=== PATIENT | male | born 1995 | race Caucasian/White ===

== ENCOUNTER 2016-11-26 15:56 | Emergency (ER) | payer OTHER ==
[2016-11-26 16:11] VITALS: TEMP 98.1; O2SAT 96
--- NOTE | 2016-11-26 16:54 | EDPHY ---
H & P Stated Complaint: nontraumatic l knee swelling/pain x 2 weeks Source: Patient Exam Limitations: No limitations - Personal History Current Tetanus/Diphtheria Vaccine: Yes - Medical/Surgical History Hx Asthma: No Hx Chronic Respiratory Disease: No Hx Diabetes: No Hx Cardiac Disease: No Hx Renal Disease: No Hx Cirrhosis: No Hx Alcoholism: No Hx HIV/AIDS: No Hx Splenectomy or Spleen Trauma: No Other PMH: appy - Social History Smoking Status: Current some day smoker Time Seen by Provider: 11/26/16 16:53 HPI/ROS: HPI: This is a 21-year-old male who presents with Chief Complaint: nontraumatic left knee swelling/pain x 2 weeks Location: Left knee Quality: Swelling and pain Duration: 2 weeks Signs and Symptoms: No bleeding, no radiation, no numbness, no weakness, no tingling, no incontinence, no decreased range of motion Timing: Gradually worsening Severity: 6/10 Context: Patient complains of left knee swelling that has gradually worsened over the last 2 weeks with pain increasing today to be 6/10; nonradiating. Patient denies any trauma/injury. Does play soccer intermittently. Has a history of right MCL injury that was treated conservatively in the past. Pain is increased with flexion, relieved with extension. Is ambulatory but with mild -to-moderate pain. Venita fever/redness/warmth/paresthesias. Modifying Factors: Has not tried any [id number] pain medications to relieve the symptoms Comment: ROS: Constitutional: No fever, no chills, no weight loss Eyes: No blurred vision Respiratory: No shortness of breath, no cough Cardiovascular: No chest pain Gastrointestinal: No nausea, no vomiting no diarrhea Genitourinary: No dysuria Extremities: No myalgias Neurologic: No weakness, no numbness Skin: No rashes Hematologic: No bruising, no bleeding MEDICAL/SURGICAL/SOCIAL HISTORY: Medical history: Generally healthy Surgical history: Appendectomy Social history: College student. CONSTITUTIONAL: Well-developed well-nourished well-appearing young adult male, awake and alert, no obvious distress HEENT: Atraumatic and normocephalic, PERRL, EOMI. Tympanic membranes clear. Oropharynx clear, no exudate and moist pink mucosa. Airway patent. No lymphadenopathy. No meningismus. Cardiovascular: Normal S1/S2, regular rate, regular rhythm, without murmur rub or gallop. PULMONARY/CHEST: Symmetrical and nontender. Clear to auscultation bilaterally. Good air movement. No accessory muscle usage. ABDOMEN: Soft, nondistended, nontender, no rebound, no guarding, no peritoneal signs, no masses or organomegaly. No CVAT. EXTREMITIES: 2/2 pedal pulses, left knee shows mild effusion; no joint line tenderness; full extension, flexion to 120. Mild pain with anterior drawer test. No pain with posterior drawer test. mild pain with valgus stress. No pain with varus stress. Patella has normal mobility. Extensor mechanism intact. no deformities, no clubbing, no cyanosis or edema. No calf tenderness. No palpable cords. Negative Homans sign. NEUROLOGICAL: no focal neuro deficits. GCS 15. Light touch sensation intact. SKIN: Warm and dry, no erythema. no rash. Good capillary refill. (Nicki Stinson) Constitutional: Initial Vital Signs Temperature (C) 36.7 C 11/26/16 16:08 Heart Rate 82 11/26/16 16:08 Respiratory Rate 16 11/26/16 16:08 Blood Pressure 114/62 11/26/16 16:08 O2 Sat (%) 96 11/26/16 16:08 O2 Delivery Mode Room Air Allergies/Adverse Reactions: No Known Allergies Allergy (Verified 11/26/16 16:07) Home Medications: Medication Instructions Recorded Naproxen Sodium [Naproxen Sodium 500 mg PO DAILY PRN #12 tablet.sa 11/26/16 ER] Medical Decision Making - Diagnostics Imaging Results: Imaging Impressions Knee X-Ray 11/26/16 17:03 Impression: Small left knee joint effusion, otherwise negative left knee radiographs. ED Course/Re-evaluation: Left knee x-ray, oral medication ordered Suspect MCL sprain Given naproxen and Ultram with adequate relief of pain Small effusion noted; not enough to remove Placed in knee immobilizer, crutches, partial weight-bearing and advance as tolerated. Advised rice therapy, Ortho follow-up if symptoms persist or worsen over the next 1-2 weeks; may require an MRI of his knee outpatient to evaluate for meniscus and ligament derangement. X-rays reviewed via PACs and show mild effusion; no significant degenerative changes/loose bodies. No signs of neurovascular compromise/tenting of skin/compartment syndrome/ extremities and joints examined above and below area of concern and are neurovascularly intact/septic arthritis/cellulitis/DVT. (Nicki Stinson) The patient was evaluated and managed by the physician investment sales assistant. I have reviewed this chart and I agree with the findings and plan of care as documented , as indicated by my signature. I am the secondary supervising physician. ( Anisa Fernández) Differential Diagnosis: Knee injury while including but not limited to fracture, ACL injury, contusion, muscular strain, and meniscus injury. (Nicki Stinson) - Data Points Medications Given: Discontinued Medications Naproxen (Aleve) 440 mg PO ONCE ONE Stop: 11/26/16 17:05 Last Admin: 11/26/16 17:55 Dose: 440 mg Tramadol HCl (Ultram) 50 mg PO EDNOW ONE Stop: 11/26/16 17:05 Last Admin: 11/26/16 17:37 Dose: 50 mg Departure - Departure Disposition: Home, Routine, Self-Care Clinical Impression: Knee MCL sprain Qualifiers: Encounter type: initial encounter Laterality: left Qualified Code(s): S83.412A - Sprain of medial collateral ligament of left knee, initial encounter Condition: Good Instructions: Knee Sprain (ED), Meniscus Tear (ED) Additional Instructions: Please wear the knee immobilizer until pain free and use the crutches-advance weight bearing as tolerated. Apply ice for 30 minutes at a time; 2-3 times per day for the next 1-2 days. Elevate left lower extremity to reduce swelling. Follow up with Orthopedics in 7-10 days if symptoms persist or worsen despite RICE therapy at which time they will evaluate and recommend with you if conservative management versus surgery is indicated. The x-rays obtained in the emergency department today demonstrate no evidence of an obvious fracture. Sometimes fractures are not obvious on the initial set of x-rays performed in the ED. For this reason, you should have repeat x-rays performed in 7-10 days if you are having any pain exclude the possibility of an occult fracture. Referrals: Luis Canchola MD [Medical Doctor] - As per Instructions Prescriptions: Naproxen Sodium [Naproxen Sodium ER] 500 mg PO DAILY PRN #12 tablet.sa PRN Reason: Pain, Moderate
[2016-11-26] MEDS ORDERED: traMADol 50 MG TAB PO ONE (17:04)
[2016-11-26] MEDS ORDERED: NAPROXEN SODIUM 220 MG TAB PO ONE (17:04)
[2016-11-26 18:21] VITALS: BP 138/82; PULSE 63; RESP 14
== END 2016-11-26 18:21 | disposition home or self-care (01) ==
DX: S83.412A Sprain of medial collateral ligament of left knee, initial encounter (principal); F17.200 Nicotine dependence, unspecified, uncomplicated; X58.XXXA Exposure to other specified factors, initial encounter
CPT/HCPCS: L1830